=== PATIENT | female | born 1940 | race Caucasian/White ===

== ENCOUNTER 2018-03-13 09:38 | Outpatient (CLI) | payer MEDICARE, SELFPAY ==
[2018-03-13 09:47] VITALS: BMI 27.7
[2018-03-13 10:10] LABS: Albumin Level 4.2 gm/dL (3.4-5.0); Calcium 9.5 mg/dL (8.5-10.1); Creatinine Clearance Estimated 63 mL/min (50-200); Creatinine,Serum 0.96 mg/dL (0.55-1.02); Estimated Glomerular Filt Rate 57 ml/min (>60); GFR (African American) 68 ML/MIN (>60)
[2018-03-13 10:35] VITALS: BP 145/65; PULSE 65; RESP 18; TEMP 36.4; O2SAT 97
[2018-03-13 11:02] VITALS: BP 148/66; PULSE 69; RESP 18; O2SAT 97
== END 2018-03-13 11:10 | disposition home or self-care (01) ==
LOC: INF 09:42
PROVIDERS: PCP Family Medicine; Visit Provider Family Medicine
DX: M81.0 Age-related osteoporosis without current pathological fracture (principal)
CPT/HCPCS: 82040; 82310; 82565; 96374; J3489

== ENCOUNTER 2021-01-19 09:49 | Outpatient (CLI) | payer MEDICARE, SELFPAY ==
[2021-01-19 09:59] VITALS: BMI 26.6
[2021-01-19 10:35] LABS: Albumin Level 4.4 g/dl (3.5-5.0)
[2021-01-19 10:37] LABS: Creatinine Clearance Estimated 59 mL/min (50-200); Estimated Glomerular Filt Rate 60 ml/min (>60); GFR (African American) 73 ML/MIN (>60)
[2021-01-19 10:38] LABS: Calcium 9.7 mg/dl (8.4-10.2)
[2021-01-19 10:41] VITALS: BP 151/69; PULSE 66; RESP 18; TEMP 36.6; O2SAT 98
[2021-01-19 11:06] VITALS: BP 144/71; PULSE 69; RESP 16; TEMP 36.6; O2SAT 98
== END 2021-01-19 11:12 | disposition home or self-care (01) ==
LOC: INF 09:50
PROVIDERS: PCP Family Medicine; Visit Provider Family Medicine
DX: M81.0 Age-related osteoporosis without current pathological fracture (principal)
CPT/HCPCS: 82040; 82310; 82565; 96374; J3489